=== PATIENT | male | born 1950 | race Caucasian/White ===

== ENCOUNTER 2017-02-09 09:33 | Day surgery (SDC) | payer BC ==
--- NOTE | ~2017-02-09 | EGD ---
EGD REPORT [facility] [address] [address] NAME: ROBERTO CAPONE : 46 STATUS : REG [facility]#: [id number] AGE: 66 ADM/REG DATE : 02/09/17 MR#: [id number] REPORT SERV DATE: 02/09/17 DICTATED BY: GUSTAVO GARCIA DATE: 02/09/17 REPORT STATUS : Draft TRANSCRIBED BY: IATARH [facility] DATE: 02/09/17 Endoscopy Center Patient Name: Roberto Capone Date of : 1950 Attending MD: GUSTAVO GARCIA MD Procedure Date No Time: 02/09/2017 Procedure: Colonoscopy Indications: High risk colon cancer surveillance: Personal history of colonic polyps Referring MD: JOSEPHINE GOODRICH Medicines: Sedation Required Anesthesia Staff Assistance Complications: No immediate complications. Estimated blood loss: Minimal. Procedure: Pre-Anesthesia Assessment: - ASA Grade Assessment: II - A patient with mild systemic disease. After I obtained informed consent, the scope was passed under direct vision. Throughout the procedure, the patient's blood pressure, pulse, and oxygen saturations were monitored continuously. The [facility] [id number] was introduced through the anus and advanced to the terminal ileum, with identification of the appendiceal orifice and IC valve. The colonoscopy was performed without difficulty. The patient tolerated the procedure well. The quality of the bowel preparation was excellent. The ileocecal valve, appendiceal orifice, terminal ileum and rectum were photographed. Findings: The terminal ileum appeared normal. A sessile polyp was found in the proximal transverse colon. The polyp was 3 mm in size. The polyp was removed with a cold snare. Resection and retrieval were complete. The exam was otherwise without abnormality. Impression: - The examined portion of the ileum was normal. - One 3 mm polyp in the proximal transverse colon. Resected and retrieved. - The examination was otherwise normal. Recommendation: - Continue present medications. - Patient has a contact number available for emergencies. The signs and symptoms of potential delayed complications were discussed with the patient. Return to normal activities tomorrow. Written discharge EGD REPORT [address] [address] NAME: ROBERTO CAPONE : [birth year] STATUS : REG [facility]#: [id number] AGE: 66 ADM/REG DATE : 02/09/17 MR#: [id number] REPORT SERV DATE: 02/09/17 DICTATED BY: GUSTAVO GARCIA DATE: 02/09/17 REPORT STATUS : Draft TRANSCRIBED BY: [email or web address] Digital DATE: 02/09/17 instructions were provided to the patient. - Return to previous diet daily. - Patient has a contact number available for emergencies. The signs and symptoms of potential delayed complications were discussed with the patient. Return to normal activities tomorrow. Written discharge instructions were provided to the patient. - Continue present medications. - Await pathology results. - Repeat colonoscopy in 5 years for surveillance based on pathology results. Procedure Code(s): --- Professional --- 27573, Colonoscopy, flexible, proximal to splenic flexure; with removal of tumor(s), polyp(s), or other lesion(s) by snare technique Diagnosis Code(s): --- Professional --- D12.3, Benign neoplasm of transverse colon Z86.010, Personal history of colonic polyps CPT copyright 2013 [employer]. All rights reserved. The codes documented in this report are preliminary and upon bacteriologist food review may be revised to meet current compliance requirements. GUSTAVO GARCIA MD 02/09/2017 11:05 AM This report has been signed electronically. Number of Addenda: 0 Note Initiated On: 02/09/2017 10:46 AM Scope Withdrawal Time 0 hours 7 minutes 8 seconds [id number] [id number]
[~2017-02-09 09:33] MED LIST: ASA5GR PO; CO Q-10100 MG PO; COREG3 PO; CRESTOR PO; CRESTOR20 MG PO; LORTAB 5 PO; MULTIVITAMI1 PO; PLAVIX PO; PRIN5 PO; VITC500 PO; [UNRECOGNIZED DRUG - OTHER] OR
== END 2017-02-09 23:59 | disposition home or self-care (01) ==
LOC: DMU 09:33
PROVIDERS: Internal Medicine Gastroenterology
PROC: 0DBL8ZX Excision of Transverse Colon, Via Natural or Artificial Opening Endoscopic, Diagnostic (ICD-10-PCS; principal; 2017-02-09 11:30)
DX: D12.3 Benign neoplasm of transverse colon (principal); I10 Essential (primary) hypertension; I25.10 Atherosclerotic heart disease of native coronary artery without angina pectoris; E78.00 Pure hypercholesterolemia, unspecified; N40.0 Benign prostatic hyperplasia without lower urinary tract symptoms; Z87.442 Personal history of urinary calculi; Z86.010 Personal history of colon polyps; Z95.5 Presence of coronary angioplasty implant and graft; Z98.890 Other specified postprocedural states; Z88.0 Allergy status to penicillin
CPT/HCPCS: 88305

== ENCOUNTER 2017-02-23 12:50 | Inpatient (IN) | payer BC ==
--- NOTE | ~2017-02-23 | HP ---
History And Physical [place] [id number] [place]. [address] NAME: NEREIDA CAPONE : [birth year] STATUS : ADM IN PAT#: [id number] AGE: 67 ADM/REG DATE : 02/23/17 MR#: [id number] REPORT SERV DATE: 02/24/17 DICTATED BY: LUIS FERNANDO CHAUDHARI DATE: 02/24/17 REPORT STATUS : Draft TRANSCRIBED BY: MODL DATE: 02/24/17 DATE OF ADMISSION: 02/23/2017 CHIEF COMPLAINT: Chest pain. HPI: 67-year-old man, followed by Dr. Torres, known to me from prior care, has history of coronary artery disease with 07/04 proximal LAD stenosis treated with 2.5 mm Xience stent, mid LAD stenosis spanning ostium of second diagonal vessel treated with 2.5 mm Xience stent, distal LAD stenosis treated with 2.5 mm Xience stent. 09/09 catheterization at [facility] demonstrated widely patent proximal and mid LAD stents and posterior descending artery 30% stenosis. The patient has had low normal LVEF. He has had treated dyslipidemia with intolerance of multiple statin medications. The patient was seen in office on 01/27. He reported a recent skiing trip to [place] at altitude and felt well without a hint of chest pain. Yesterday at approximately 9 o'clock, he started to develop retrosternal chest pain. This increased in severity until EMS was summoned and he was brought to [facility]. EKG evolution demonstrated mild anteroseptal ST elevation and code STEMI was activated. The patient was taken to the Catheterization Laboratory by Dr. Noble where 90% proximal LAD stenosis was seen and a new 2.5 x 20 mm synergy stent was deployed. The patient has felt well since then. PAST MEDICAL HISTORY: 1. CAD-coronary revascularization above. 2. Dyslipidemia-variably compliant with medications due to myalgias, on statins. 3. Low-normal LVEF. HOME MEDICATIONS: Crestor 20 mg every other day, nitroglycerin 0.4 mg sublingual p.r.n., Plavix 75 mg daily, coenzyme Q10 100 mg daily, lisinopril 5 mg daily. ALLERGIES: PENICILLIN. SOCIAL HISTORY: The patient is with two children. He works for [employer]. He drinks a glass of red wine daily. He is very active. FAMILY HISTORY: Mother had congestive heart failure at age 78. REVIEW OF SYSTEMS: Unremarkable. PHYSICAL EXAMINATION: GENERAL: Lying in CCU bed comfortably without chest pain. VITAL SIGNS: 100/52, respirations 18, temperature 98.8, pulse 63 and regular. NECK: No JVD. No carotid bruit. LUNGS: Clear to auscultation and percussion. History And Physical [address] [address] NAME: NEREIDA CAPONE : [birth year] STATUS : ADM IN [facility]#: [id number] AGE: 67 ADM/REG DATE : 02/23/17 MR#: [id number] REPORT SERV DATE: 02/24/17 DICTATED BY: LUIS FERNANDO CHAUDHARI DATE: 02/24/17 REPORT STATUS : Draft TRANSCRIBED BY: FÁTIMA DATE: 02/24/17 CARDIAC: Entirely unremarkable. ABDOMEN: Benign. Right and left femoral pulses +2. Right groin is without hematoma. Right and left dorsalis pedis pulses +2. DATA: BUN and creatinine 13 and 0.86 yielding EGFR 103. Troponin-I 0.05, repeated 24.4. White blood cell count 7900, hematocrit 34.5%, platelets 191,000. EKG, sinus rhythm, rate of 71, normal axes and intervals, entirely normal. ASSESSMENT AND PLAN: 1. Anterior wall myocardial infarction-stable after primary PCI to LAD. Low troponin-I bump. I suspect that he will have preserved LV systolic function. We will continue aspirin 325 mg daily and Plavix 150 mg daily for a week and then 75 mg thereafter. 2. LV function-uncertain. We will obtain echocardiogram now. Blood pressure is too low to support TAVIA inhibitors or beta jeanmarie at present. 3. Hypercholesterolemia-we will try Lipitor 10 mg daily. /MODL Luis Fernando Chaudhari M.D. / [id number] CC: Jaskaran Feliciano M.D. Leonard Hays III, M.D., [facility]
--- NOTE | ~2017-02-23 | OP ---
Record Of Operation [facility] [address] [place]. [address] NAME: ROBERTO CAPONE : [birth year] STATUS : DIS IN PAT#: [id number] AGE: 67 ADM/REG DATE : 02/23/17 MR#: [id number] REPORT SERV DATE: 03/06/17 DICTATED BY: DONAVAN NOBLE III DATE: 03/06/17 REPORT STATUS : Draft TRANSCRIBED BY: MODL DATE: 03/06/17 DATE OF PROCEDURE: 02/23/2017 PROCEDURAL [employer]: Donavan Noble M.D., [facility], [facility]. INDICATIONS: Mr. Roberto Capone is a 67-year-old, white male, with multiple risk factors for coronary atherosclerotic disease, known coronary artery disease and status post percutaneous coronary intervention with implantation of stents in the [id number]-td-dmg portions of the left anterior descending coronary artery, who presented with an acute anterolateral ST segment elevation myocardial infarction. The patient was referred for emergent cardiac catheterization and consideration of revascularization. Options, potential risks and benefits of the procedure were discussed with the patient. The patient accepted these risks and wished to proceed. DESCRIPTION OF PROCEDURE: 1. Left heart catheterization. 2. Left ventriculogram. 3. Left and right coronary angiograms. 4. Percutaneous transluminal coronary angioplasty with implantation of a 2.5 mm x 20 mm Merna Scientific Synergy EES in the proximal to mid portions of the left anterior descending coronary artery. 5. Limited right iliofemoral angiogram. CONTRAST: Iopamidol 180 mL. MEDICATIONS: 1. Clopidogrel 300 mg orally. 2. Midazolam 1 mg intravenously. 3. Sublimaze 50 mcg intravenously. 4. Heparin 5000 IU intravenously. 5. Eptifibatide 180 mcg/kg intravenously and repeated at 10 minutes, followed by a standard intravenous infusion at 2 mcg/kg per minute. EQUIPMENT: 1. 18-gauge, 7 cm Scott RMI needle. 2. 0.035 inch PTFE coated, 150 cm, 3 mm J Cordis [place] guidewire. 3. 6-Romanian, 11 cm Cordis Brigida MS sheath (RFA). 4. 6-Romanian, 100 cm Amplatz Left 1 catheter. 5. 6-Romanian, 100 cm Amplatz Left 2 catheter. 6. 6-Romanian, 100 cm Mariano 3D right coronary artery catheter. 7. 6-Romanian Amplatz Left 2 Cordis [place] Brite-Tip guiding catheter. 8. 0.014 inch Hi-Torque floppy, 190 cm, extra-support Mcallister Whisper steerable guidewire. 9. 2.5 mm x 20 mm Merna [employer] Emerge MR balloon dilatation catheter (14 atmospheres for a duration of 15 seconds). 10.2.5 mm x 20 mm [employer] Synergy MR stent deployment system (18 atmospheres for a duration of 60 seconds). Record Of Operation [address] [address] NAME: ROBERTO CAPONE : [birth year] STATUS : DIS IN PAT#: [id number] AGE: 67 ADM/REG DATE : 02/23/17 MR#: [id number] REPORT SERV DATE: 03/06/17 DICTATED BY: DONAVAN NOBLE III DATE: 03/06/17 REPORT STATUS : Draft TRANSCRIBED BY: FÁTIMA DATE: 03/06/17 11.2.5 mm x 20 mm Merna scientific NC Emerge MR balloon dilatation catheter (18 atmospheres for a duration of 60 seconds). 12.6-Romanian, 110 cm pigtail-145 catheter (36 mL at 13 mL per second). 13.6-Romanian Mcallister Perclose ProGlide vascular closure device. COMPLICATIONS: None. RADIATION DOSE: 914 mGy. ESTIMATED BLOOD LOSS: 15 mL. HEMODYNAMIC DATA: Prior to left ventriculography, the central aortic pressure was 95/55 mmHg. The left ventricular pressure was 95/25 mmHg. ANGIOGRAPHIC DATA: Single plane 30 degree ARVIZU left ventriculography demonstrated that the left ventricle was moderately enlarged. There was anterolateral profound hypokinesis, apical profound hypokinesis to akinesis and diaphragmatic mild hypokinesis. Global left ventricular systolic function was severely reduced. There was no mitral regurgitation. The left main coronary artery was a large caliber, short, irregular vessel. There was a 25% stenosis involving the ostium of the left main coronary artery. The left main coronary artery bifurcated into a medium to large caliber left anterior descending, and a small to medium caliber, nondominant left circumflex coronary arteries. The left anterior descending coronary artery gave rise to 2 major septal perforators, medium caliber first diagonal branch, large caliber second diagonal branch and a small caliber third diagonal branch, before supplying the left ventricular apex. There was an eccentric 50% stenosis involving the proximal portion of the left anterior descending coronary artery, proximal to the origin of the first major septal power plant manager and just proximal to the origin of the first diagonal branch. There was a long, irregular, complex 90% stenosis with intraluminal radiolucency involving the proximal to midportion of the left anterior descending coronary artery, at the origins of the major septal perforators and just proximal to the origin of the second major diagonal branch. There was an eccentric, radiolucent 50% stenosis involving the origin of the second major diagonal branch from the mid portion of the left anterior descending coronary artery. The remainder of the left anterior descending coronary artery was free of angiographically significant obstructive epicardial coronary artery disease. The left circumflex coronary artery was a small to medium caliber, nondominant vessel. The left circumflex coronary artery gave rise to a small caliber first obtuse marginal branch, small to medium caliber second obtuse marginal branch and one medium caliber posterolateral segment branch. The left circumflex coronary artery was diffusely irregular. The left circumflex coronary artery was free of angiographically significant obstructive epicardial coronary artery disease. The right coronary artery was a large caliber, dominant vessel. The right coronary artery gave rise to a sinoatrial branch, small caliber first right ventricular branch, small to Record Of Operation [address] [address] NAME: ROBERTO CAPONE : [birth year] STATUS : DIS IN PAT#: [id number] AGE: 67 ADM/REG DATE : 02/23/17 MR#: [id number] REPORT SERV DATE: 03/06/17 DICTATED BY: DONAVAN NOBLE III DATE: 03/06/17 REPORT STATUS : Draft TRANSCRIBED BY: FÁTIMA DATE: 03/06/17 medium caliber second right ventricular branch, small caliber third right ventricular branch, medium caliber acute marginal branch, large caliber posterior descending coronary artery, small caliber first posterior left ventricular branch, small to medium caliber second posterior left ventricular branch, medium caliber third posterior left ventricular branch and a small caliber fourth posterior left ventricular branch. The right coronary artery was diffusely irregular. There was an eccentric 25% to 40% stenosis involving the proximal to midportion of the right coronary artery, at the origin of the second right ventricular branch. There was a radiolucent 70% to 90% stenosis involving the origin of the second right ventricular branch from the proximal portion of the right coronary artery. The right coronary artery was free of angiographically significant obstructive epicardial coronary artery disease. Following balloon dilatation, implantation of a 2.5 mm x 20 mm Merna [employer] Synergy EES in the proximal to mid portions of the left anterior descending coronary artery, selective injections of the left coronary artery demonstrated a reduction in the stenosis to approximately 0%. There was no intraluminal radiolucency or irregularity. There was REYES grade III perfusion of the distal vessel. Limited right iliofemoral angiography demonstrated that the sheath insertion site was located in the common femoral artery, just distal to the origin of the inferior epigastric artery. PATIENT DISPOSITION: Coronary Care Unit. CONCLUSIONS: 1. Anterolateral profound hypokinesis, apical profound hypokinesis to akinesis and diaphragmatic mild hypokinesis, with a severe reduction in global left ventricular systolic function. 2. Elevated left ventricular end-diastolic pressure. 3. Angiographically significant one-vessel coronary artery disease, involving the proximal to mid portions of the left anterior descending coronary artery. 4. Right dominant coronary anatomy. 5. Successful percutaneous transluminal coronary angioplasty with implantation of a 2.5 mm x 20 mm Merna Scientific Synergy EES in the proximal to mid portions of the left anterior descending coronary artery, with reduction in the stenosis to approximately 0% and REYES grade III perfusion of the distal vessel. RECOMMENDATION: Aspirin for life, clopidogrel for at least one year, continue carvedilol, continue lisinopril, continue rosuvastatin, cardiac rehabilitation program, echocardiogram to document left ventricular ejection fraction and consider a life vest. PHYLLIS/FÁTIMA Donavan Noble III, M.D., [facility], [facility] Record Of [address] [address] NAME: ROBERTO CAPONE : [birth year] STATUS : DIS IN PAT#: [id number] AGE: 67 ADM/REG DATE : 02/23/17 MR#: [id number] REPORT SERV DATE: 03/06/17 DICTATED BY: DONAVAN NOBLE III DATE: 04/10/17 REPORT STATUS : Draft TRANSCRIBED BY: FÁTIMA DATE: 03/06/17 / [id number] CC: Jaskaran Feliciano M.D. Alexander Stratienko, M.D.
--- NOTE | ~2017-02-23 | DS ---
Discharge Summary [facility] [address] [place]. [address] NAME: NEREIDA CAPONE : [birth year] STATUS : DIS IN PAT#: [id number] AGE: 67 ADM/REG DATE : 02/23/17 MR#: [id number] REPORT SERV DATE: 03/03/17 DICTATED BY: DAVID CHAUDHARI DATE: 03/02/17 REPORT STATUS : Draft TRANSCRIBED BY: FÁTIMA DATE: 03/02/17 Data Collection from hospitalization DISCHARGE DIAGNOSES: 1. Acute anterolateral ST-elevation myocardial infarction, acute coronary syndrome. 2. Coronary artery disease. 3. Nonsustained ventricular tachycardia. 4. Ischemic cardiomyopathy with ejection fraction less than 35%. 5. Hyperlipidemia. CONSULTATIONS: None. PROCEDURES: Cardiac catheterization, 02/23/2017. MEDICATIONS: Miguelangel Aspirin 325 mg as instructed, Lipitor 10 mg at bedtime, Coreg 6.25 mg twice a day, CoQ10 100 mg daily, Prinivil 5 mg daily, Centrum tablet one daily, Nitrostat 0.4 mg sublingually as needed, Effient 10 mg daily, vitamin C one tablet daily. CONDITION AT DISCHARGE: Stable. DISPOSITION: The patient was discharged home on a low-sodium, low-cholesterol diet with activities as instructed. He would follow up with me on 03/09/2017. HOSPITAL COURSE: This is a 67-year-old man, who is known to me from prior care. He has a history of coronary artery disease. He had undergone proximal LAD stenosis treated with 2.5 mm Xience stent, mid LAD stenosis spanning ostium of second diagonal vessel treated with 2.5 mm Xience stent, and distal LAD stenosis treated with 2.5 mm Xience stent in 2007. In 2013, catheterization demonstrated widely patent proximal and mid LAD stent and posterior descending artery 30% stenosis. The patient has had low normal left ventricular ejection fraction. He has had treated dyslipidemia with intolerance of multiple statin medication. He had gone on a ski trip to [place] and had felt well without a hint of chest pain. On a day prior to this admission, he began to develop retrosternal chest pain. This increased in severity until EMS was called, and he was brought to the [facility] Emergency Room. The EKG evolution demonstrated mild anteroseptal ST-elevation, and code STEMI was activated. It was felt that the patient would need to undergo cardiac catheterization. He was admitted to the hospital for further evaluation and treatment. Upon admission, the patient was taken to the cardiac labor/excavator by Dr. Prasad Noble where he underwent the above-mentioned procedure. He tolerated this well. There were no complications. The following day, echocardiogram was performed. He had no chest pain, palpitations, or dyspnea. He was in a sinus rhythm with nonsustained ventricular tachycardia. He had some inspiratory crackles. Clopidogrel was changed to prasugrel. A LifeVest was going to be placed. The patient has ischemic cardiomyopathy with an ejection fraction less than 35%. Discharge planning was performed on 02/26/2017. Discharge instructions were given. Due to his improved and stable condition, he was discharged home with the above-stated instructions. Information collected by: Lori Mello Discharge Summary [address] [address] NAME: NEREIDA CAPONE : [birth year] STATUS : DIS IN PAT#: [id number] AGE: 67 ADM/REG DATE : 02/23/17 MR#: [id number] REPORT SERV DATE: 03/03/17 DICTATED BY: DAVID CHAUDHARI DATE: 03/02/17 REPORT STATUS : Draft TRANSCRIBED BY: FÁTIMA DATE: 03/02/17 I submit the above information as my discharge summary. REINALDO/FÁTIMA David Chaudhari M.D. / [id number] CC: Jaskaran Feliciano M.D.
[2017-02-23 13:14] LABS: BASOPHILS 0.5 %; BASOPHILS ABSOLUTE 0.04 10/3/uL (0.0-0.16); EOSINOPHILS 2.2 %; EOSINOPHILS ABSOLUTE 0.19 10/3/uL (0.0-0.53); HEMATOCRIT 37.8 % (40.0-51.0); HEMOGLOBIN 13.1 g/dL (13.6-17.8); IMMATURE GRANULOCYTES 0.1 %; IMMATURE GRANULOCYTES ABSOLUTE 0.01 10/3/uL (0.0-0.11); LYMPHOCYTES 26.2 %; LYMPHOCYTES ABSOLUTE 2.25 10/3/uL (0.67-4.30); MEAN CORPUS HGB CONC 34.7 g/dL (32.0-36.0); MEAN CORPUSCULAR HEMOGLOB 32.3 pg (26.0-34.0); MEAN CORPUSCULAR VOLUME 93.1 fL (80-100); MONOCYTES 6.6 %; MONOCYTES ABSOLUTE 0.57 10/3/uL (0.21-1.20); NEUTROPHILS 64.4 %; NEUTROPHILS ABSOLUTE 5.54 10/3/uL (2.02-8.40); PLATELET COUNT 218 10/3/uL (150-400); RBC DISTRIBUTION WIDTH 12.7 % (12.0-16.0); RED CELL COUNT 4.06 10/6/uL (4.7-6.1)
[2017-02-23 13:18] LABS: ER CBC TAT 0 Hrs 09 Mins; MANUAL DIFF NO %; WHITE BLOOD CELLS 8.6 10/3/uL (4.5-10.5)
[2017-02-23 13:20] LABS: INTERNATIONAL NORMAL RATI 1.1 UNITS (-); PARTIAL THROMBO TIME 25.4 SEC (22.5-37.2); PROTIME (NOT ORD) 13.7 SEC (12.0-14.5)
[2017-02-23 13:28] LABS: BUN (BLOOD UREA NITROGEN) 18 MG/DL (6-23); CALCIUM, SERUM 8.7 MG/DL (8.5-10.4); CHLORIDE, SERUM 109 MMOL/L (96-112); CO2 (CARBON DIOXIDE) 22 MMOL/L (24-34); CREATININE 1.07 MG/DL (0.70-1.30); GFR AFRICAN AMERICAN 82 ML/MIN (>=60); GFR NON AFRICAN AMERICAN 70 ML/MIN (>=60); GLUCOSE, SERUM 117 MG/DL (60-99); POTASSIUM, SERUM 3.9 MMOL/L (3.5-5.3); SODIUM, SERUM 141 MMOL/L (135-148)
[2017-02-23 13:29] LABS: CHEST PAIN PROFILE TAT 0 Hrs 20 Mins; TROPONIN I 0.05 NG/ML (<0.05)
[2017-02-23 15:59] LABS: BASOPHILS 0.3 %; BASOPHILS ABSOLUTE 0.03 10/3/uL (0.0-0.16); EOSINOPHILS 0.5 %; EOSINOPHILS ABSOLUTE 0.05 10/3/uL (0.0-0.53); HEMATOCRIT 37.8 % (40.0-51.0); HEMOGLOBIN 12.9 g/dL (13.6-17.8); IMMATURE GRANULOCYTES 0.3 %; IMMATURE GRANULOCYTES ABSOLUTE 0.03 10/3/uL (0.0-0.11); LYMPHOCYTES 10.5 %; LYMPHOCYTES ABSOLUTE 1.15 10/3/uL (0.67-4.30); MEAN CORPUS HGB CONC 34.1 g/dL (32.0-36.0); MEAN CORPUSCULAR HEMOGLOB 32.2 pg (26.0-34.0); MEAN CORPUSCULAR VOLUME 94.3 fL (80-100); MONOCYTES 3.3 %; MONOCYTES ABSOLUTE 0.36 10/3/uL (0.21-1.20); NEUTROPHILS 85.1 %; NEUTROPHILS ABSOLUTE 9.36 10/3/uL (2.02-8.40); PLATELET COUNT 212 10/3/uL (150-400); RBC DISTRIBUTION WIDTH 12.6 % (12.0-16.0); RED CELL COUNT 4.01 10/6/uL (4.7-6.1)
[2017-02-23 16:00] LABS: MANUAL DIFF NO %
[2017-02-23 16:14] LABS: CK-MB 35.7 NG/ML; CKMB INDEX (NOT ORD) 12.6
[2017-02-23] MEDS ORDERED: NITROSTAT0.4 MG SL (16:40)
[2017-02-23] MEDS ORDERED: CRESTOR20 MG PO (16:40)
[2017-02-23] MEDS ORDERED: PLAVIX PO (16:40)
[2017-02-23] MEDS ORDERED: VITAMIN C PO (16:41)
[2017-02-23] MEDS ORDERED: CO Q-10100 MG PO (16:41)
[2017-02-23] MEDS ORDERED: CENTRUM PO (16:41)
[2017-02-23] MEDS ORDERED: ASABAYER PO (16:42)
[2017-02-23] MEDS ORDERED: PRIN5 PO (16:42)
[2017-02-23 21:28] LABS: CK-MB 138.7 NG/ML
[2017-02-23 21:30] LABS: CKMB INDEX (NOT ORD) 15.6
[2017-02-23 23:32] LABS: BASOPHILS 0.2 %; BASOPHILS ABSOLUTE 0.02 10/3/uL (0.0-0.16); EOSINOPHILS 1.3 %; EOSINOPHILS ABSOLUTE 0.11 10/3/uL (0.0-0.53); IMMATURE GRANULOCYTES 0.2 %; IMMATURE GRANULOCYTES ABSOLUTE 0.02 10/3/uL (0.0-0.11); LYMPHOCYTES 22.3 %; LYMPHOCYTES ABSOLUTE 1.83 10/3/uL (0.67-4.30); MANUAL DIFF NO %; MEAN CORPUS HGB CONC 35.3 g/dL (32.0-36.0); MEAN CORPUSCULAR HEMOGLOB 32.7 pg (26.0-34.0); MEAN CORPUSCULAR VOLUME 92.6 fL (80-100); MEAN PLATELET VOLUME 10.2 fL (9.2-13.0); MONOCYTES 7.6 %; MONOCYTES ABSOLUTE 0.62 10/3/uL (0.21-1.20); NEUTROPHILS 68.4 %; NEUTROPHILS ABSOLUTE 5.61 10/3/uL (2.02-8.40); PLATELET COUNT 205 10/3/uL (150-400); RED CELL COUNT 3.67 10/6/uL (4.7-6.1); WHITE BLOOD CELLS 8.2 10/3/uL (4.5-10.5)
[2017-02-24 06:31] LABS: BASOPHILS 0.3 %; BASOPHILS ABSOLUTE 0.02 10/3/uL (0.0-0.16); EOSINOPHILS 1.3 %; HEMATOCRIT 34.5 % (40.0-51.0); HEMOGLOBIN 11.9 g/dL (13.6-17.8); IMMATURE GRANULOCYTES 0.1 %; IMMATURE GRANULOCYTES ABSOLUTE 0.01 10/3/uL (0.0-0.11); LYMPHOCYTES 21.7 %; LYMPHOCYTES ABSOLUTE 1.72 10/3/uL (0.67-4.30); MEAN CORPUS HGB CONC 34.5 g/dL (32.0-36.0); MEAN CORPUSCULAR HEMOGLOB 31.7 pg (26.0-34.0); MEAN PLATELET VOLUME 9.9 fL (9.2-13.0); MONOCYTES 7.3 %; MONOCYTES ABSOLUTE 0.58 10/3/uL (0.21-1.20); NEUTROPHILS 69.3 %; NEUTROPHILS ABSOLUTE 5.51 10/3/uL (2.02-8.40); PLATELET COUNT 191 10/3/uL (150-400); RBC DISTRIBUTION WIDTH 13.3 % (12.0-16.0); RED CELL COUNT 3.75 10/6/uL (4.7-6.1); WHITE BLOOD CELLS 7.9 10/3/uL (4.5-10.5)
[2017-02-24 06:35] LABS: MANUAL DIFF NO %
[2017-02-24 06:47] LABS: CHLORIDE, SERUM 107 MMOL/L (96-112); CHOLESTEROL 148 MG/DL (< 200); CK-MB 105.1 NG/ML; CO2 (CARBON DIOXIDE) 25 MMOL/L (24-34); CPK 873 U/L (0-200); CREATININE 0.86 MG/DL (0.70-1.30); GFR AFRICAN AMERICAN 103 ML/MIN (>=60); GFR NON AFRICAN AMERICAN 88 ML/MIN (>=60); GLUCOSE, SERUM 105 MG/DL (60-99); POTASSIUM, SERUM 4.1 MMOL/L (3.5-5.3); SODIUM, SERUM 141 MMOL/L (135-148)
[2017-02-24 06:49] LABS: BUN (BLOOD UREA NITROGEN) 13 MG/DL (6-23); CALCIUM, SERUM 7.7 MG/DL (8.5-10.4); CHOL/HDL RATIO(NOT ORDER) 3.1 (0-5); HDL CHOLESTEROL 47 MG/DL (> 39); LDL CHOLESTEROL 78 MG/DL (< 130); NON-HDL CHOLESTEROL 101 MG/DL (< 160); TRIGLYCERIDE 115 MG/DL (< 150)
[2017-02-24 15:15] LABS: CK-MB 50.1 NG/ML
[2017-02-24 15:16] LABS: CKMB INDEX (NOT ORD) 8.6
[2017-02-25 05:46] LABS: CREATININE 0.94 MG/DL (0.70-1.30)
[2017-02-25] MEDS ORDERED: EFFIENT10 PO (13:38)
[2017-02-25] MEDS ORDERED: COREG6 PO (13:39)
[2017-02-25] MEDS ORDERED: LIPITOR10 PO (13:39)
[2017-02-26 07:37] LABS: CREATININE 0.87 MG/DL (0.70-1.30)
== END 2017-02-26 13:54 | disposition home or self-care (01) | DRG 247 ==
LOC: ER 12:50 → SSU2 13:02 → CCU 14:57 → 5NO 02-24 17:50
PROVIDERS: Emergency Medicine; Internal Medicine Cardiovascular Disease
PROC: 4A023N7 Measurement of Cardiac Sampling and Pressure, Left Heart, Percutaneous Approach (ICD-10-PCS; principal; 2017-02-23)
PROC: 027034Z Dilation of Coronary Artery, One Artery with Drug-eluting Intraluminal Device, Percutaneous Approach (ICD-10-PCS; 2017-02-23)
PROC: B2111ZZ Fluoroscopy of Multiple Coronary Arteries using Low Osmolar Contrast (ICD-10-PCS; 2017-02-23)
PROC: B2151ZZ Fluoroscopy of Left Heart using Low Osmolar Contrast (ICD-10-PCS; 2017-02-23)
DX: I21.09 ST elevation (STEMI) myocardial infarction involving other coronary artery of anterior wall (principal); E78.5 Hyperlipidemia, unspecified; I25.10 Atherosclerotic heart disease of native coronary artery without angina pectoris; E78.00 Pure hypercholesterolemia, unspecified; Z95.5 Presence of coronary angioplasty implant and graft; Z88.0 Allergy status to penicillin; Z82.49 Family history of ischemic heart disease and other diseases of the circulatory system; I25.5 Ischemic cardiomyopathy
CPT/HCPCS: 71010; 80048; 80061; 82550; 82553; 82565; 83735; 84484; 85025; 85347; 85610; 85730; 87641; 93005; 93458; 99152; 99153; 99285; A9270-GY; C1713; C1725; C1760; C1769; C1874; C1887; C1894; C8929; C9606; J0583; J1327; J2250; J2405; J3010; Q9957; Q9967